=== PATIENT | male | born 1980 | race Caucasian/White ===

== ENCOUNTER 2025-04-26 13:40 | Emergency (ER) | payer OTHER ==
[~2025-04-26] VITALS: Ht 182.9 cm; Wt 103.3 kg
[2025-04-26] MEDS: KETOROLAC 30 MG/ML 1 ML VIAL IV ONE (15:21)
[2025-04-26] MEDS ORDERED: ISOVUE-370 76% 100 ML VIAL As Ordered ONE (15:36)
[2025-04-26 16:28] VITALS: BP 164/93; TEMP 98.4; O2SAT 98
[2025-04-26] MEDS ORDERED: METH-1165 PO (18:45)
== END 2025-04-26 18:50 | disposition home or self-care (01) ==
LOC: M ED 13:40
DX: I71.20 Thoracic aortic aneurysm, without rupture, unspecified (principal); M54.6 Pain in thoracic spine; M54.50 Low back pain, unspecified; Z88.0 Allergy status to penicillin; Z91.013 Allergy to seafood; Z79.899 Other long term (current) drug therapy
CPT/HCPCS: 71275; 74174; 80047; 96374; 99284; J1885; Q9967

== ENCOUNTER 2025-06-23 15:02 | Emergency (ER) | payer OTHER ==
[~2025-06-23] VITALS: Ht 182.9 cm; Wt 104.9 kg
[~2025-06-23 15:02] MED LIST: METH-1165 PO
[2025-06-23] MEDS ORDERED: AMLO1TAB25 PO (15:08)
[2025-06-23 15:29] VITALS: TEMP 96.9
[2025-06-23 16:03] LABS: BASO # 0.1 10^3/uL (0.0-0.2); BASO % 0.6 % (0.0-1.0); EOS # 0.2 10^3/uL (0.0-0.5); EOS % 2.1 % (0.0-3.0); LYMPH # 3.7 10^3/uL (1.5-5.0); LYMPH % 42.0 % (24.0-44.0); MONO # 0.8 10^3/uL (0.0-0.8); MONO % 9.5 % (2.0-8.0); NEUTROPHILS # 4.0 10^3/uL (1.5-8.5); NEUTROPHILS % 45.6 % (36.0-66.0); PLATELET COUNT, AUTOMATED 294 10^3/uL (150-450)
[2025-06-23] MEDS: ONDANSETRON 4MG 2ML VIAL IV ONE (16:09)
[2025-06-23] MEDS: MORPHINE 4 MG/ML 1 ML VIAL IV ONE (16:10)
[2025-06-23] MEDS ORDERED: HOME MED LIST COMPLETE! XX SCH (16:10)
[2025-06-23 16:11] LABS: ALT/SGPT 26.0 U/L (7.0-40); AST/SGOT 24.0 U/L (<34); CK-MB VALUE MASS 1.6 NG/ML (<3.6); CPK CREATINE PHOSPHOKINASE 117.0 U/L (46-171); MB/CK RELATIVE INDEX 1.36 (< OR =4)
[2025-06-23 16:17] LABS: INR 0.9
[2025-06-23] MEDS ORDERED: ISOVUE-370 76% 100 ML VIAL As Ordered ONE (16:27)
[2025-06-23 17:28] VITALS: O2SAT 96
[2025-06-23 17:46] VITALS: BP 116/65
[2025-06-23] MEDS ORDERED: PROT1TAB2 PO (17:54)
== END 2025-06-23 18:34 | disposition home or self-care (01) ==
LOC: M ED 15:02
DX: R07.89 Other chest pain (principal); I77.810 Thoracic aortic ectasia; R94.31 Abnormal electrocardiogram [ECG] [EKG]; I10 Essential (primary) hypertension; K21.9 Gastro-esophageal reflux disease without esophagitis; F10.10 Alcohol abuse, uncomplicated; Z88.0 Allergy status to penicillin; Z91.013 Allergy to seafood; Z88.8 Allergy status to other drugs, medicaments and biological substances; Z79.899 Other long term (current) drug therapy
CPT/HCPCS: 71045; 71275; 80047; 80076; 82550; 82553; 83690; 84484; 85025; 85610; 93005; 93041; 94760; 96374; 96375; 99285; J2405; Q9967

== ENCOUNTER 2025-08-12 14:58 | Emergency (ER) | payer OTHER ==
[~2025-08-12] VITALS: Ht 182.9 cm; Wt 104.5 kg
[~2025-08-12 14:58] MED LIST changes: +AMLO1TAB25 PO; +PROT1TAB2 PO
[2025-08-12 15:11] VITALS: BP 131/76; TEMP 98.3; O2SAT 97
== END 2025-08-12 17:20 | disposition left against medical advice (07) ==
LOC: EDBD 14:58 → M ED 14:58
DX: Z53.21 Procedure and treatment not carried out due to patient leaving prior to being seen by health care provider (principal)

== ENCOUNTER 2025-08-13 07:24 | Emergency (ER) | payer OTHER ==
[~2025-08-13] VITALS: Ht 188 cm; Wt 102.6 kg
[2025-08-13 08:08] LABS: BASO # 0.1 10^3/uL (0.0-0.2); BASO % 0.9 % (0.0-1.0); EOS # 0.1 10^3/uL (0.0-0.5); EOS % 2.3 % (0.0-3.0); LYMPH # 1.7 10^3/uL (1.5-5.0); LYMPH % 29.0 % (24.0-44.0); MONO # 0.5 10^3/uL (0.0-0.8); MONO % 9.1 % (2.0-8.0); NEUTROPHILS # 3.4 10^3/uL (1.5-8.5); NEUTROPHILS % 58.5 % (36.0-66.0); PLATELET COUNT, AUTOMATED 306 10^3/uL (150-450)
[2025-08-13 08:37] LABS: ALT/SGPT 21.0 U/L (7.0-40); AST/SGOT 23.0 U/L (<34); CALCIUM LEVEL 10.2 MG/DL (8.5-10.1); CARBON DIOXIDE LEVEL 25.0 MMOL/L (20-31); CHLORIDE LEVEL 105.0 MMOL/L (98-107); CK-MB VALUE MASS 1.3 NG/ML (<3.6); CREATININE FOR GFR 1.08 MG/DL (0.70-1.30); GLOMERULAR FILTRATION RATE 85.7 (>60); POTASSIUM SERUM 4.3 MMOL/L (3.5-5.1); SODIUM LEVEL 140.0 MMOL/L (136-145)
[2025-08-13 08:39] LABS: FREE T4 1.15 NG/DL (0.89-1.76)
[2025-08-13 08:41] LABS: CPK CREATINE PHOSPHOKINASE 101.0 U/L (46-171); MB/CK RELATIVE INDEX 1.28 (< OR =4)
[2025-08-13] MEDS: ONDANSETRON 4MG/2ML VIAL IV ONE (09:59)
[2025-08-13] MEDS: KETOROLAC 30 MG/ML 1 ML VIAL IV ONE (10:01)
[2025-08-13 10:02] LABS: CK-MB VALUE MASS 1.0 NG/ML (<3.6)
[2025-08-13 10:07] LABS: CPK CREATINE PHOSPHOKINASE 84.0 U/L (46-171); MB/CK RELATIVE INDEX 1.19 (< OR =4)
[2025-08-13] MEDS ORDERED: ISOVUE-370 76% 100 ML VIAL As Ordered ONE (10:07)
[2025-08-13 11:32] VITALS: BP 133/91; TEMP 97.9; O2SAT 96
== END 2025-08-13 11:33 | disposition home or self-care (01) ==
LOC: M ED 07:24
DX: R07.9 Chest pain, unspecified (principal); F41.9 Anxiety disorder, unspecified; I77.810 Thoracic aortic ectasia; Z88.0 Allergy status to penicillin; Z91.013 Allergy to seafood; Z79.899 Other long term (current) drug therapy
CPT/HCPCS: 71046; 71275; 80048; 80076; 82550; 82553; 83690; 84439; 84443; 84484; 85025; 85730; 93005; 96374; 96375; 99284; J1885; J2405; Q9967

== ENCOUNTER 2025-09-11 00:03 | Emergency (ER) | payer OTHER ==
[~2025-09-11] VITALS: Ht 182.9 cm; Wt 103.0 kg
[2025-09-11 00:05] VITALS: TEMP 97
[2025-09-11] MEDS ORDERED: ESCITALOPRAM (00:07)
[2025-09-11] MEDS ORDERED: ALPR0.25 (00:07)
[2025-09-11] MEDS: NS (Normal Saline) 0.9% 1,000 ML IV ONE (00:43)
[2025-09-11] MEDS: KETOROLAC 30 MG/ML 1 ML VIAL IV ONE (00:43)
[2025-09-11] MEDS: ONDANSETRON 4MG/2ML VIAL IV ONE ×2 (00:43→04:44)
[2025-09-11 00:50] LABS: BASO # 0.0 10^3/uL (0.0-0.2); BASO % 0.3 % (0.0-1.0); EOS # 0.3 10^3/uL (0.0-0.5); EOS % 2.9 % (0.0-3.0); LYMPH # 2.2 10^3/uL (1.5-5.0); LYMPH % 23.8 % (24.0-44.0); MONO # 0.8 10^3/uL (0.0-0.8); MONO % 8.4 % (2.0-8.0); NEUTROPHILS # 5.9 10^3/uL (1.5-8.5); NEUTROPHILS % 64.3 % (36.0-66.0); PLATELET COUNT, AUTOMATED 237 10^3/uL (150-450)
[2025-09-11] MEDS ORDERED: ISOVUE-370 76% 100 ML VIAL As Ordered ONE (00:54)
[2025-09-11 01:17] LABS: ALT/SGPT 21.0 U/L (7.0-40); AST/SGOT 21.0 U/L (<34); CALCIUM LEVEL 9.4 MG/DL (8.5-10.1); CARBON DIOXIDE LEVEL 24.0 MMOL/L (20-31); CHLORIDE LEVEL 106.0 MMOL/L (98-107); CREATININE FOR GFR 1.13 MG/DL (0.70-1.30); GLOMERULAR FILTRATION RATE 81.2 (>60); POTASSIUM SERUM 3.9 MMOL/L (3.5-5.1); SODIUM LEVEL 142.0 MMOL/L (136-145)
[2025-09-11 04:15] VITALS: BP 122/80; O2SAT 96
== END 2025-09-11 04:51 | disposition home or self-care (01) ==
LOC: M ED 00:03
DX: R10.13 Epigastric pain (principal); R00.1 Bradycardia, unspecified; I10 Essential (primary) hypertension; F41.9 Anxiety disorder, unspecified; Z88.0 Allergy status to penicillin; Z91.013 Allergy to seafood; Z79.899 Other long term (current) drug therapy
CPT/HCPCS: 71275; 74174; 80047; 80048; 80076; 83605; 83690; 85025; 93005; 93041; 96361; 96374; 96375; 99285; J1885; J2405; Q9967